=== PATIENT | male | born 1975 | race Caucasian/White ===

== ENCOUNTER → 2017-01-06 | Outpatient (CLI) | payer BC ==
--- NOTE | 2017-01-06 20:38 | MR ---
MR brain without contrast HISTORY: Muscle spasm and general weakness Multiplanar multisequence imaging through the brain No comparisons There is no restricted diffusion. No hemorrhage or hydrocephalus is evident. There are normal vascula r flow voids. Cerebellopontine angles, corpus callosum, pituitary, cervical medullary junction are no rmal. The orbits show symmetric appearance. Brain signal is normal. Mild inflammatory change present in the ethmoid air cells and maxillary sinuses. Pineal gland cyst noted incidentally. IMPRESSION: No significant abnormality is evident, additional findings above.
== END | disposition home or self-care (01) ==
LOC: RADMRIMAIN 17:24
PROVIDERS: ATTEND Family Medicine
DX: M62.838 Other muscle spasm (principal); H53.8 Other visual disturbances
CPT/HCPCS: 70551

== ENCOUNTER → 2017-01-30 | Outpatient (CLI) | payer OTHER ==
--- NOTE | 2017-01-30 09:52 | MR ---
EXAMINATION TYPE: MR cervical spine wo/w con DATE OF EXAM: 01/30/2017 COMPARISON: NONE HISTORY: csp radiculopathy TECHNIQUE: Multiplanar, multisequence images of the cervical spine were acquired utilizing 8 mL intravenous Gada vist gadolinium contrast. Diffusion weighted imaging was performed. C2-C3: No evidence for degenerative disc disease. No disc bulge/herniation or protrusion. No Canal stenosis. Foramina are patent bilaterally. C3-C4: Uncovertebral joint hypertrophy noted bilaterally with central and left paracentral disc protr usion and mild effacement of thecal sac with mild bilateral foraminal encroachment greater on the lef t. Borderline canal stenosis. C4-C5: Moderate degenerative disc disease with posterior spondylosis. Uncovertebral joint hypertrophy with disc bulging capped by spur results in mild effacement of thecal sac. There is mild to moderate bilateral foraminal encroachment. C5-C6: Degenerative disc disease with posterior spondylosis and uncovertebral joint hypertrophy. Ther e is facet arthropathy and moderate to severe bilateral foraminal encroachment greater on the left. D isc bulging capped by spur results in mild canal stenosis. C6-C7: Broad-based right paracentral disc bulging. Mild facet arthropathy. Mild bilateral foraminal e ncroachment. No Canal stenosis. C7-T1: No evidence for degenerative disc disease. No disc bulge/herniation or protrusion. No Canal stenosis. Foramina are patent bilaterally. Cervical segments are intact. There is normal alignment. Cervical spinal cord is of normal signal. Craniovertebral junction relationships are within normal limits. No abnormal enhancement. IMPRESSION: 1. Multilevel degenerative disc disease with facet arthropathy and multilevel foraminal encroachment. 2. Broad-based left paracentral and central disc protrusion with effacement of thecal sac and bilater al foraminal encroachment greater on the left. Borderline canal stenosis 3. Disc bulging capped by spur at multiple levels results in mild canal stenosis C4-5 and C5-C6 signi ficant bilateral foraminal encroachment at these 2 levels. 4. Heterogeneous enhancement of the thyroid correlate for thyroiditis.
== END | disposition home or self-care (01) ==
LOC: RADMRIMAIN 09:02
PROVIDERS: ATTEND Psychiatry & Neurology Neurology
DX: M48.02 Spinal stenosis, cervical region (principal); M50.121 Cervical disc disorder at C4-C5 level with radiculopathy; M50.10 Cervical disc disorder with radiculopathy, unspecified cervical region; M46.82 Other specified inflammatory spondylopathies, cervical region
CPT/HCPCS: 72156; A9581